=== PATIENT | female | born 1995 | race Caucasian/White ===

== ENCOUNTER 2018-06-27 22:31 | Emergency (ER) | payer OTHER ==
[2018-06-27 22:33] VITALS: BP 138/71
--- NOTE | 2018-06-27 22:34 | ER Report ---
History and Physical Time Seen By MD: 22:33 HPI/ROS CHIEF COMPLAINT: Left leg injury HISTORY OF PRESENT ILLNESS: 23-year-old female presents a to the ER. Patient was dancing when she fell on the curb injuring her left lateral leg. She's complaining of 8/10 pain. She admits to alcohol ingestion. She denies head impact, neck pain, chest pain, shortness of breath. He is not taking anything for pain. She describes throbbing 8/10 pain in the lateral calf aggravated by movement of the knee and the ankle. Some superficial bruising and abrasion to the lateral calf Allergies: Coded Allergies: No Known Drug Allergies (Unverified , 06/27/18) Home Meds No Active Prescriptions or Reported Meds Reviewed Nurses Notes: Yes Old Medical Records Reviewed: Yes Constitutional Vital Sign - Last 24 Hours 06/27/18 22:33 Temp 98.6 Pulse 141 Resp 26 B/P (MAP) 138/71 Pulse Ox 96 O2 Delivery Room Air Physical Exam General appearance: Alert no distress. Respiratory: Chest is non tender, lungs are clear to auscultation. Cardiac: Regular rate and rhythm Extremities: Examination of the left lower extremity reveals a neurovascularly intact leg. There is no numbness on palpation of the knee. Her significant swelling and superficial abrasion noted to the lateral calf muscle and upper bledsoe. The ankle is nontender. The foot is neurovascularly intact DIFFERENTIAL DIAGNOSIS: After history and physical exam differential diagnosis was considered for sprain, strain, fracture, dislocation, contusion Medical Decision Making EKG/Imaging Imaging X-ray: Two-view left tibia-fibula was obtained. I viewed the images myself on the PACS system. My interpretation of the images is: No fracture no dislocation or malalignment. The radiologist interpretation had no clinically significant variation from this interpretation. ED Course/Re-evaluation ED Course Patient was minute to an examination room. H&P was done. The dental diagnoses was considered. On clinical examination. Patient has a very tender left calf muscle. She fell on the lateral aspect of her lower leg. Diagnostic x-rays are ordered. Patient's treated with ibuprofen and Tylenol orally since she is intoxicated. Her diagnostic x-rays are unremarkable. The results are discussed with her. On reevaluation after 30 minutes. She's feeling much better. She be discharged home on ibuprofen and Tylenol for symptomatically relief. She is advised to apply ice to her leg. Decision to Disposition Date: Jun 27, 2018 Decision to Disposition Time: 23:14 Depart Departure Latest Vital Signs Vital Signs Date Time Temp Pulse Resp B/P (MAP) Pulse Ox O2 Delivery O2 Flow Rate FiO2 06/27/18 22:33 98.6 141 26 138/71 96 Room Air Impression: Primary Impression: Contusion of leg, left Additional Impression: Alcohol intoxication Condition: Improved Disposition: HOME OR SELF-CARE Referrals: MEHRAN HAMMONDS MD, FARRUKH MD New Scripts No Active Prescriptions or Reported Meds Patient Instructions: Contusion in Adults (ED) Additional Instructions: Take ibuprofen 200 mg 3 tablets 3 times a day with food for 3-5 days Ice packs to the affected area Follow-up with primary care if unimproved in 3-5 days Problem Qualifiers Primary Impression: Contusion of leg, left Encounter type: initial encounter Qualified Codes: S80.12XA - Contusion of left lower leg, initial encounter Additional Impression: Alcohol intoxication Complication of substance-induced condition: uncomplicated Qualified Codes: F10.920 - Alcohol use, unspecified with intoxication, uncomplicated JULIENNE CRABTREE DO Jun 27, 2018 22:34
[2018-06-27] MEDS ORDERED: IBUPROFEN 600 MG TAB PO ONE (22:40)
[2018-06-27] MEDS ORDERED: ACETAMINOPHEN 325 MG TAB PO ONE (22:40)
--- NOTE | 2018-06-27 23:30 | RADIOLOGY IMAGING REPORT ---
FACILITY: PATIENT NAME: Cahcorta Villalobos : 1995 MR: [id number] V: [id number] EXAM DATE: ORDERING PHYSICIAN: JULIENNE CRABTREE TECHNOLOGIST: Location: [facility] - [place] Patient: Chacorta Villalobos : 1995 Visit/Account:[id number] Date of Sevice: 06/27/2018 TIBIA FIBULA LEFT Indication: Follow-up. Leg pain. Comparison: None available Findings: Two views left tibia and fibula show no evidence of fracture, dislocation, or acute osseous abnormal ity. There is no focal soft tissue abnormality. No evidence of radiopaque foreign body. IMPRESSION: No acute osseous abnormality left tibia/fibula Report Dictated By: Lio Greenberg at 06/27/2018 11:26 PM Report E-Signed By: Lio Greenberg at 06/27/2018 11:27 PM WSN:[id number]
== END 2018-06-27 23:19 | disposition home or self-care (01) ==
LOC: ER 22:38
DX: S80.12XA Contusion of left lower leg, initial encounter (principal); F10.920 Alcohol use, unspecified with intoxication, uncomplicated
CPT/HCPCS: 99283